=== PATIENT | male | born 1985 | race Two or more races ===

== ENCOUNTER 2017-07-02 11:21 | Emergency (ER) | payer SELFPAY ==
[~2017-07-02] VITALS: Ht 167.6 cm; Wt 90.7 kg
[2017-07-02 11:38] VITALS: BP 139/87
--- NOTE | 2017-07-02 11:40 | PHYS DOC ---
Adult General Chief Complaint Chief Complaint: ANKLE PROBLEM HPI HPI Patient is a 31 year old male who presents with a grossly swollen ankle after he was thrown from a horse 6 days ago. He states that he has been unable to bear weight on the ankle since the injury. He does have his own crutches and has been using those. He has been taking Tylenol for pain but states that it has not helped control the pain. Review of Systems Review of Systems Constitutional: Denies fever or chills [] Respiratory: Denies cough or shortness of breath [] Cardiovascular: No additional information not addressed in HPI [] Musculoskeletal: See history of present illness Integument: bruising to right calf and ankle Neurologic: Denies headache, focal weakness or sensory changes [] Current Medications Current Medications Current Medications Medications (Trade) Dose Ordered Sig/Bess Start Time Stop Time Status Last Admin Dose Admin Diphtheria/ Tetanus/Acell Pertussis (Boostrix) 0.5 ml ONCE ONCE 07/02/17 14:00 07/02/17 14:00 DC 07/02/17 13:39 0.5 ML Oxycodone/ Acetaminophen (Percocet 5/325) 2 tab 1X ONCE 07/02/17 13:00 07/02/17 13:01 DC 07/02/17 12:55 2 TAB Allergies Allergies Allergies Coded Allergies Type Severity Reaction Last Updated Verified No Known Drug Allergies 07/02/17 No Physical Exam Physical Exam Constitutional: Well developed, well nourished, no acute distress, non-toxic appearance. [] Neck: Normal range of motion, no tenderness, supple, no stridor. [] Cardiovascular:Heart rate regular rhythm, no murmur [] Lungs & Thorax: Bilateral breath sounds clear to auscultation [] Skin: Warm, dry, ecchymosis noted to right lower leg and ankle Back: No tenderness Extremities: Right ankle is grossly swollen and discolored, exquisite tenderness with palpation over lateral and medial malleolus, pulses and sensation are intact distal to injury Neurologic: Alert and oriented X 3, normal motor function, normal sensory function, no focal deficits noted. [] Psychologic: Affect normal, judgement normal, mood normal. [] Current Patient Data Vital Signs Vital Signs Date Time Temp Pulse Resp B/P (MAP) Pulse Ox O2 Delivery O2 Flow Rate FiO2 07/02/17 11:38 98.2 71 18 98 Room Air 98.2 EKG EKG [] Radiology/Procedures Radiology/Procedures []PATIENT: ENEIDA GUEVARA ACCOUNT: [id number] : 1985 LOCATION: ER AGE: 31 SEX: M EXAM STATUS: REG ER ORD. PHYSICIAN: CALLY STALLINGS APRN REASON: pain and swelling, thrown from horse 6 days ago PROCEDURE: ANKLE RIGHT 3V Indication: Right ankle pain, thrown from a horse 6 days ago. Swelling and pain both medially and laterally. Technique: 3 views of the right ankle are submitted for review. No comparison is available. Findings: There is an acute traumatic oblique fracture of the lateral malleolus with overlying soft tissue swelling. Distal fragment is displaced laterally 5 mm. There is widening of the ankle mortise medially. There is a potential avulsion fracture from the tip of the medial malleolus. There is soft tissue swelling diffusely. Impression: 1. Lateral malleolus acute traumatic fracture. 2. Potential avulsion fracture from the tip of the medial malleolus. 3. Widening of the ankle mortise medially concerning for ligamentous injury. DICTATED and SIGNED BY: LETA DALLAS MD DATE: 07/02/171224 Impressions: The patient was placed in a U-splint I the emergency room library circulation technician. The ankle was reduced with compression while splinting. Patient tolerated the procedure well. Neurovascular exam was normal following the splinting procedure. The patient has his own crutches but was discharged from the ED via wheelchair. Course & Med Decision Making Course & Med Decision Making Pertinent Labs and Imaging studies reviewed. (See chart for details) [] 1. Lateral malleolus fracture 2. Avulsion of the medial malleolus Dragon Disclaimer Dragon Disclaimer This electronic medical record was generated, in whole or in part, using a voice recognition dictation system. Departure Departure Scripts Oxycodone/Apap 5-325 (PERCOCET 5-325 MG TABLET) 1 Each Tablet 1-2 TAB PO Q4-6HRS Y for PAIN, #20 TAB Prov: CALLY STALLINGS APRN 07/02/17 CALLY STALLINGS APRN Jul 02, 2017 11:40
--- NOTE | 2017-07-02 12:29 | RAD ---
Indication: Right ankle pain, thrown from a horse 6 days ago. Swelling and pain both medially and laterally. Technique: 3 views of the right ankle are submitted for review. No comparison is available. Findings: There is an acute traumatic oblique fracture of the lateral malleolus with overlying soft tissue swelling. Distal fragment is displaced laterally 5 mm. There is widening of the ankle mortise medially. There is a potential avulsion fracture from the tip of the medial malleolus. There is soft tissue swelling diffusely. Impression: 1. Lateral malleolus acute traumatic fracture. 2. Potential avulsion fracture from the tip of the medial malleolus. 3. Widening of the ankle mortise medially concerning for ligamentous injury.
[2017-07-02] MEDS ORDERED: oxyCODONE/APAP 5/325 1 TAB TABLET PO ONE (13:00)
[2017-07-02] MEDS ORDERED: OXYC-323 PO (13:42)
[2017-07-02] MEDS ORDERED: DIPHTH,PERTUSS(ACELL),TET TOX 0.5 ML DISP.SYRIN. VAX IM ONE (14:00)
== END 2017-07-02 13:52 | disposition home or self-care (01) ==
LOC: EDBD 11:21 → ER 11:21
DX: S82.61XA Displaced fracture of lateral malleolus of right fibula, initial encounter for closed fracture (principal); S82.52XA Displaced fracture of medial malleolus of left tibia, initial encounter for closed fracture; V80.919A Animal-rider injured in unspecified transport accident, initial encounter; Y93.89 Activity, other specified; Y92.89 Other specified places as the place of occurrence of the external cause; Y99.8 Other external cause status
CPT/HCPCS: 29515; 73610; 90471; 90715; 99284-25

== ENCOUNTER 2017-07-11 08:57 | Day surgery (SDC) | payer SELFPAY ==
[~2017-07-11 08:57] MED LIST: OXYC-323 PO
--- NOTE | 2017-07-11 09:41 | DISCH ---
DISCHARGE INSTRUCTIONS Condition on Discharge Condition on Discharge: Stable Activity After Discharge Activity Instructions for Disc: Other, see below Other activity instructions: leave splint in place Bathing Instructions: Shower-keep dressing dry Weight Bearing Status after Di: Non weight bearing Diet after Discharge Diet after Discharge: Regular Wound Incision Care Wound/Incision Care: Ice to area for comfort, Keep wound/cast CDI, Keep wound elevated, Do not change dressing Contacting the DR. after DC Call your doctor for: Concerns you may have Follow-Up Follow up with: [facility] in 2wks TERESITA PEPE II, MD Jul 11, 2017 09:41
--- NOTE | 2017-07-11 09:42 | PDOC ---
BRIEF OPERATIVE NOTE Date: Jul 11, 2017 Pre-Op Diagnosis closed R ankle fx dislocation; syndesmotic injury Post-Op Diagnosis same Procedure Performed ORIF R distal fibula and syndesmosis Surgeon Diallo Anesthesia Type: General, Local Blood Loss 10mL Complications none TERESITA PEPE II, MD Jul 11, 2017 09:42
[2017-07-11] MEDS ORDERED: IV RINGERS,LACTATED 1000ML 1,000 ML IV SCH ×2 (10:00→11:17)
[2017-07-11] MEDS ORDERED: fentaNYL PF VIAL 100 MCG/2 ML VIAL IV PRN (11:30)
[2017-07-11] MEDS ORDERED: HYDROmorphone 2 MG/ML VIAL IV PRN (11:30)
[2017-07-11] MEDS ORDERED: ONDANSETRON PF 4 MG/2 ML VIAL. IV PRN (11:30)
[2017-07-11] MEDS ORDERED: LIDOCAINE 1% 1 ML SYRINGE. ID PRN (11:30)
[2017-07-11] MEDS ORDERED: PROCHLORPERAZINE 10 MG/2 ML VIAL. IV PRN (11:30)
[2017-07-11] MEDS ORDERED: MIDAZOLAM HCL/PF 2 MG/2 ML VIAL. ONE (13:21)
[2017-07-11] MEDS ORDERED: fentaNYL PF VIAL 100 MCG/2 ML VIAL ONE ×3 (13:21→15:21)
[2017-07-11] MEDS ORDERED: LIDOCAINE 1% 20 ML VIAL. ONE (13:22)
[2017-07-11] MEDS ORDERED: ROCURONIUM 100 MG/10 ML VIAL. ONE (13:22)
[2017-07-11] MEDS ORDERED: BUPIVACAINE MPF 0.5% 30 ML VIAL. ONE (13:22)
[2017-07-11] MEDS ORDERED: oxyCODONE/APAP 5/325 1 TAB TABLET PO ONE ×2 (13:30→15:15)
[2017-07-11] MEDS ORDERED: LIDOCAINE 2% PF Vial for OR 5 ML VIAL. ONE (14:12)
[2017-07-11] MEDS ORDERED: PROPOFOL 20 ML IV ONE (14:12)
[2017-07-11] MEDS ORDERED: FAMOTIDINE 20 MG/2 ML VIAL ONE (14:12)
[2017-07-11] MEDS ORDERED: DEXAMETHASONE SOD PHOS 20 MG/5 ML VIAL. ONE (14:12)
[2017-07-11] MEDS ORDERED: ONDANSETRON PF 4 MG/2 ML VIAL. ONE (14:12)
[2017-07-11] MEDS ORDERED: NEOSTIGMINE METHYLSULFATE 5 MG/5 ML SYRINGE. ONE (14:13)
[2017-07-11] MEDS ORDERED: GLYCOPYRROLATE 1 MG/5 ML VIAL. ONE (14:13)
[2017-07-11] MEDS ORDERED: SEVOFLURANE 31 TO 60 MINUTES. IH ONE (14:25)
[2017-07-11] MEDS: fentaNYL PF VIAL 100 MCG/2 ML VIAL IV PRN ×4 (14:54→15:33)
[2017-07-11] MEDS ORDERED: MORPHINE SULFATE 2 MG/ML DISP.SYRIN. ONE (15:03)
[2017-07-11] MEDS: MORPHINE SULFATE 2 MG/ML DISP.SYRIN. IV PRN ×2 (15:06→15:21)
--- NOTE | 2017-07-11 15:29 | OP ---
DATE OF SURGERY: 07/11/2017 SURGEON: Cong Pepe MD. DIGITAL MARKETING INTERN: None. ANESTHESIA: General plus local. PREOPERATIVE DIAGNOSIS: Right ankle fracture dislocation with syndesmotic injury. POSTOPERATIVE DIAGNOSIS: Right ankle fracture dislocation with syndesmotic injury. PROCEDURE PERFORMED: 1. Open reduction internal fixation, right distal fibula. 2. Open reduction internal fixation, right syndesmotic injury. COMPONENTS INSERTED: [employer] 3-hole lateral distal fibula plate. TOURNIQUET TIME: 43 minutes. ESTIMATED BLOOD LOSS: 10 mL. COMPLICATIONS: None. REASON FOR PROCEDURE: The patient is a very pleasant 31-year-old gentleman that thrown from a horse a little over a week ago. He was seen in the Emergency Department where a splint and reduction were performed. He was referred to my clinic for definitive management and we had discussion of the risks, benefits, alternatives of above surgery and he elected to proceed. DESCRIPTION OF PROCEDURE: The patient was greeted in the preoperative area by myself. Correct extremity was marked and verified. He was taken back to the operative suite and antibiotics were started en route. Once in the OR, he was transferred gently supine to the OR table and secured to the bed. All pressure points padded after a large bump was placed under his right hip. We applied a nonsterile tourniquet to his right thigh. He had a successful induction of general anesthetic. We then proceeded to prep and drape right lower extremity in our usual sterile fashion and conducted a standard preoperative timeout. I palpated and marked his distal fibular surface anatomy and made a straight lateral incision over his distal fibula and fracture site. I dissected skin with electrocautery and cauterized bleeders as they were encountered. I incised fascia in line with the skin incision. I identified the fracture site and used a periosteal elevator and a small rongeur to remove the adherent soft tissue in anticipation of my plate application. I used dental pick, a metal tip sucker as well as a small rongeur to debride the fracture site. He had already a fair amount of healing and things were a little more stiff than I would have anticipated given the timeframe, so I had to work a little bit more to achieve a good reduction, but I was able to do so with dorsiflexion and eversion to help get back in better followed by a [id number] reduction forceps. I then held my plate up against bone and took C-arm images to confirm good reduction and hardware position. I then placed a nonlocking screw proximal and distal to the fracture site and secured the plate to the bone and then checked my images, again was happy with how everything came together. I then filled the distal holes and placed 2 more through the holes proximal to the fracture site. I then made a stab incision over his medial malleolus and dissected down bluntly with a hemostat. I then used my large periarticular reduction forceps and held the syndesmosis in a reduced position. I then placed 2 more screws across the 4 cortices to provide syndesmotic fixation through the plate. After this, I took my final images including an external rotation stress view. There was no medial widening or talar shift present. I felt his reduction was very good. I was happy with the hardware position. After this, I irrigated out the operative field and closed the fascia with simple interrupted 0 Vicryl followed by inverted interrupted 2-0 for the subcutaneous tissue and 2-0 nylon in a horizontal mattress fashion for skin. The area was cleansed and dried. We injected approximately 8 mL of a local anesthetic mixture into the macario-incisional area. Xeroform was then used over both incisions followed by gauze. We then placed him into a well-padded AO splint and allowed this to set up. He was then awakened from anesthesia. Prior to completion of wound closure, all counts were reported correct x 2. He tolerated surgery well. At the conclusion of surgery, he was transferred gently supine to the recovery room cart and taken to PACU in stable and extubated condition. POSTOPERATIVE PLAN: Discharge him home. He will be nonweightbearing 12 weeks. We will see him back in the clinic in 2 weeks, sooner should problems arise. CONG PEPE MD DR: MARCIA/javid JOB#: [id number] / [id number] CED
[2017-07-11 15:55] VITALS: BP 145/75
== END 2017-07-11 16:06 | disposition home or self-care (01) ==
LOC: SURG 08:57
PROVIDERS: ATTEND Orthopaedic Surgery Sports Medicine
DX: S82.891A Other fracture of right lower leg, initial encounter for closed fracture (principal); X58.XXXA Exposure to other specified factors, initial encounter; Y93.89 Activity, other specified; Y92.89 Other specified places as the place of occurrence of the external cause; Y99.8 Other external cause status; E66.9 Obesity, unspecified; Z90.49 Acquired absence of other specified parts of digestive tract; Z68.32 Body mass index [BMI] 32.0-32.9, adult; Z87.39 Personal history of other diseases of the musculoskeletal system and connective tissue; Z72.89 Other problems related to lifestyle
CPT/HCPCS: 27814; 76000; A4215; C1713; J0690; J1100; J2250; J2270; J2405; J2704; J2710; J3010; J3490; S0028; J2001

== ENCOUNTER 2017-09-21 07:14 | Day surgery (SDC) | payer SELFPAY ==
[~2017-09-21] VITALS: Ht 170.2 cm; Wt 88.5 kg
[~2017-09-21 07:14] MED LIST changes: +BUPIVACAINE MPF 0.5% 30 ML VIAL. ONE; +HYDROmorphone 2 MG/ML VIAL IV PRN; +IV RINGERS,LACTATED 1000ML 1,000 ML IV SCH; +LIDOCAINE 1% PF 2 ML VIAL. ID PRN; +LIDOCAINE 1% PF 30 ML VIAL. ONE; +MORPHINE SULFATE 4 MG/ML DISP.SYRIN. IV PRN; +ONDANSETRON PF 4 MG/2 ML VIAL. IV PRN; +PROCHLORPERAZINE 10 MG/2 ML VIAL. IV PRN; +fentaNYL PF VIAL 100 MCG/2 ML VIAL IV PRN
[2017-09-21] MEDS ORDERED: LIDOCAINE 2% PF Vial for OR 5 ML VIAL. ONE (07:50)
[2017-09-21] MEDS ORDERED: ONDANSETRON PF 4 MG/2 ML VIAL. ONE (07:50)
[2017-09-21] MEDS ORDERED: PROPOFOL 20 ML IV ONE (07:50)
[2017-09-21] MEDS ORDERED: fentaNYL PF VIAL 100 MCG/2 ML VIAL ONE (07:50)
[2017-09-21] MEDS ORDERED: MIDAZOLAM HCL/PF 2 MG/2 ML VIAL. ONE (07:50)
[2017-09-21] MEDS ORDERED: DEXAMETHASONE SOD PHOS 20 MG/5 ML VIAL. ONE (07:50)
--- NOTE | 2017-09-21 08:13 | DISCH ---
DISCHARGE INSTRUCTIONS Condition on Discharge Condition on Discharge: Stable Activity After Discharge Activity Instructions for Disc: Other, see below Other activity instructions: ok to WBAT Bathing Instructions: Shower-keep dressing dry Weight Bearing Status after Di: As tolerated Diet after Discharge Diet after Discharge: Regular Wound Incision Care Wound/Incision Care: Ice to area for comfort, Keep wound/cast CDI, Keep wound elevated, Change dressing Contacting the DR. after DC Call your doctor for: Concerns you may have Follow-Up Follow up with: [facility] in 2wks TERESITA PEPE II, MD Sep 21, 2017 08:13
--- NOTE | 2017-09-21 08:15 | PDOC ---
BRIEF OPERATIVE NOTE Date: Sep 21, 2017 Pre-Op Diagnosis R ankle syndesmotic injury Post-Op Diagnosis same Procedure Performed Removal of syndesmotic screws Surgeon Diallo Consumer Relations Complaint Clerk None Anesthesiologist Sarah Anesthesia Type: General, Local Blood Loss 5 mL IV Fluid Per anesthesia Urine Output Not measured Specimens Obtained None Findings Stable external rotation stress test Complications None OPerative Note Dictated TERESITA PEPE II, MD Sep 21, 2017 08:14
[2017-09-21] MEDS ORDERED: SEVOFLURANE 31 TO 60 MINUTES. IH ONE (08:40)
[2017-09-21] MEDS ORDERED: HYDROcodone/APAP 5/325MG 1 TAB TABLET PO ONE (09:15)
[2017-09-21] MEDS ORDERED: DOCU-109 PO (09:27)
[2017-09-21] MEDS ORDERED: HYDR-971 PO (09:27)
--- NOTE | 2017-09-21 09:27 | OP ---
DATE OF SURGERY: 09/21/2017 SURGEON: Cong Pepe MD. LABORATORY PHLEBOTOMIST: None. PREOPERATIVE DIAGNOSIS: Status post open reduction internal fixation right ankle and syndesmosis. POSTOPERATIVE DIAGNOSIS: Status post open reduction internal fixation right ankle and syndesmosis. PROCEDURE PERFORMED: Removal of syndesmotic screws and insertion of 2 small fragment screws. COMPLICATIONS: None. ESTIMATED BLOOD LOSS: 5 mL. TOURNIQUET TIME: 14 minutes. FINDINGS: Stable external rotation stress test under fluoroscopy. REASON FOR PROCEDURE: The patient is a very pleasant 31-year-old who suffered ankle fracture and syndesmotic injury that was closed on his right lower extremity just under 3 months ago. He underwent ORIF with myself. He is brought in today for scheduled hardware removal. We had discussion of risks, benefits and alternatives and rationale behind the surgery and he elected to proceed. DESCRIPTION OF PROCEDURE: The patient was greeted in the preoperative area by myself. Correct extremity was marked and verified. He was taken to the operative suite and antibiotics were started en route. Once in the OR, transferred gently supine to the OR table and had successful induction of general anesthetic. He was secured to the bed. A nonsterile tourniquet taped in place right lower extremity. We then proceeded to prep and drape right lower extremity in our usual sterile fashion and conducted a standard preoperative timeout. I then used gravity to exsanguinate the extremity and tourniquet was insufflated to 250 mmHg. I then placed Coban over his toes. I then brought in C-arm to localize the 2 syndesmotic screws and made an incision over these. I dissected out subcutaneous tissue with a Marilee and electrocautery. Bleeders were cauterized as they were encountered. I then used a Mallard to expose the screw heads and removed the syndesmotic screws without complication. I then measured and placed 2 more 3.[address]. I then conducted my external rotation stress test and noted stability was present. We then irrigated out the operative field and I closed the deep layer with inverted interrupted 2-0 followed by 2-0 nylon in a simple interrupted fashion. We then infiltrated the subcutaneous tissue around the skin with 6 mL of local anesthetic mixture. After this, the leg was cleansed and dried. Xeroform gauze, soft padding and Yohannes wrap were applied. He tolerated surgery well. Prior to completion of wound closure, all counts were reported correct x 2. No complications. At the conclusion of surgery, he was awakened from anesthesia, transferred gently supine to the recovery room cart and taken to PACU in stable and extubated condition. POSTOPERATIVE PLAN: To discharge him home. He will be weightbearing as tolerated. Wound care instructions were discussed with him and provided in written form. We will see him back in 2 weeks, sooner should problems arise. CONG PEPE MD DR: MARCIA/javid JOB#: [id number] / [id number] CED
[2017-09-21] MEDS ORDERED: ONDA4TAB10 SL (09:28)
[2017-09-21 10:03] VITALS: BP 117/70
== END 2017-09-21 10:21 | disposition home or self-care (01) ==
LOC: SURG 07:14
PROVIDERS: ATTEND Orthopaedic Surgery Sports Medicine
DX: Z46.89 Encounter for fitting and adjustment of other specified devices (principal); Z90.49 Acquired absence of other specified parts of digestive tract; Z87.39 Personal history of other diseases of the musculoskeletal system and connective tissue; Z72.89 Other problems related to lifestyle
CPT/HCPCS: 20680; A4215; C1713; J0690; J1100; J2250; J2405; J2704; J3010; J3490; 76000; J2001